=== PATIENT | female | born 1955 | race Caucasian/White ===

== ENCOUNTER → 2022-01-15 | Outpatient (CLI) | payer OTHER ==
[2022-01-15 12:51] LABS: HEMOGLOBIN 12.9 gm/dl (12.3-15.3); RED BLOOD COUNT 4.14 M/UL (4.00-5.10); WHITE BLOOD COUNT 9.3 K/UL (4.5-11.0)
[2022-01-15 13:16] LABS: BUN/CREATININE RATIO 24 (0-10)
[2022-01-19 13:10] LABS: A/G RATIO 0.8 (0.7-1.7); ALBUMIN 3.4 g/dL (2.9-4.4); ALPHA-1-GLOBULIN 0.3 g/dL (0.0-0.4); BETA GLOBULIN 1.3 g/dL (0.7-1.3); GAMMA GLOBULIN 1.8 g/dL (0.4-1.8); GLOBULIN, TOTAL 4.4 g/dL (2.2-3.9); IMMUNOGLOBULIN A, QN, SERUM 658 mg/dL (87-352); IMMUNOGLOBULIN G, QN, SERUM 1687 mg/dL (586-1602); IMMUNOGLOBULIN M, QN, SERUM 194 mg/dL (26-217); M-SPIKE Not Observed g/dL (Not Observed); PROTEIN, TOTAL, SERUM 7.8 g/dL (6.0-8.5)
== END ==
LOC: LAB 11:54
PROVIDERS: Internal Medicine Rheumatology; Psychiatry & Neurology Neurology
DX: M06.9 Rheumatoid arthritis, unspecified (principal); M79.7 Fibromyalgia; M85.80 Other specified disorders of bone density and structure, unspecified site; M54.9 Dorsalgia, unspecified; R53.1 Weakness; R20.2 Paresthesia of skin; R73.9 Hyperglycemia, unspecified
CPT/HCPCS: 36415; 80053; 82607; 82746; 82784; 83036; 83921; 84155; 84165; 84443; 84630; 85025; 85652; 86334